=== PATIENT | male | born 1980 | race Caucasian/White ===

== ENCOUNTER 2021-03-03 13:07 | Emergency (ER) | payer OTHER ==
[~2021-03-03] VITALS: Ht 182.9 cm; Wt 95.5 kg
[2021-03-03 13:30] VITALS: BP 158/100
[2021-03-03] MEDS ORDERED: IV NORMAL SALINE 1,000ML 1,000 ML IV ONE (13:30)
[2021-03-03] MEDS ORDERED: ONDANSETRON PF 4 MG/2 ML VIAL. IVP ONE (13:30)
[2021-03-03 13:41] LABS: BASO # 0.1 x10^3/uL (0.0-0.2); BASO % 1 % (0-3); EOS # 0.1 x10^3/uL (0.0-0.7); EOS % 1 % (0-3); HEMATOCRIT 40.4 % (39.0-53.0); HEMOGLOBIN 14.1 g/dL (13.0-17.5); LYMPH # 2.1 x10^3/uL (1.0-4.8); LYMPH % 20 % (24-48); MEAN CORPUSCULAR HEMOGLOBIN 32 pg (25-35); MEAN CORPUSCULAR HGB CONC 35 g/dL (31-37); MEAN CORPUSCULAR VOLUME 90 fL (79-100); MONO # 0.7 x10^3/uL (0.0-1.1); MONO % 7 % (0-9); NEUT # 7.7 x10^3uL (1.8-7.7); NEUT % 73 % (31-73); PLATELET COUNT 275 x10^3/uL (140-400); RED BLOOD COUNT 4.48 x10^6/uL (4.30-5.70); RED CELL DISTRIBUTION WIDTH 12.9 % (11.5-14.5); WHITE BLOOD COUNT 10.6 x10^3/uL (4.0-11.0)
--- NOTE | 2021-03-03 13:47 | PHYS DOC ---
Past History Additional Past Medical Histor: BPH and chronic L hip pain from old injury Past Surgical History: Other Additional Past Surgical Histo: hip surgery L Alcohol Use: Rarely General Adult EDM: Chief Complaint: FLANK PAIN HPI: HPI: Patient is a 40-year-old male being seen in the ER today for right flank pain that started this morning. Patient describes the pain as a sharp and intermittent pain, no radiation of pain, rates pain 10 out of 10, no treatment prior to arrival, no alleviating or aggravating factors. Patient denies dysuria, frequency, urgency, hematuria, abdominal pain, nausea, vomiting, fevers, redness of breath, chest pain. Review of Systems: Review of Systems: 14 body systems of the review of systems have been reviewed. See HPI for pertinent positive and negative responses, otherwise all other systems are negative, nonpertinent or noncontributory Current Medications: Current Meds: Current Medications Medications (Trade) Dose Ordered Sig/Haley Start Time Stop Time Status Last Admin Dose Admin Fentanyl Citrate (Fentanyl 2ml Vial) 50 mcg 1X ONCE 03/03/21 13:30 03/03/21 13:38 DC 03/03/21 13:34 50 MCG Ondansetron HCl (Zofran) 4 mg 1X ONCE 03/03/21 13:30 03/03/21 13:38 DC 03/03/21 13:34 4 MG Sodium Chloride 1,000 ml @ 1,000 mls/hr 1X ONCE 03/03/21 13:30 03/03/21 14:29 03/03/21 13:34 1,000 MLS/HR Allergies: Allergies: Allergies Coded Allergies Type Severity Reaction Last Updated Verified No Known Drug Allergies 03/03/21 No Physical Exam: PE: Constitutional: Well developed, well nourished, no acute distress, non-toxic appearance. [] HENT: Normocephalic, atraumatic, bilateral external ears normal, nose normal. [] Eyes: PERRL, conjunctiva normal, no discharge. [] Neck: Normal range of motion, no stridor [] Cardiovascular:Heart rate regular rhythm, no murmur [] Lungs & Thorax: Bilateral breath sounds clear to auscultation [] Abdomen: Bowel sounds normal, soft, no tenderness, no masses, no pulsatile masses. [] Skin: Warm, dry, no erythema, no rash. [] Back: No tenderness, positive right CVA tenderness. [] Extremities: No tenderness, no cyanosis, no clubbing, ROM intact, no edema. [] Neurologic: Alert and oriented X 3, normal motor function, normal sensory function, no focal deficits noted. [] Psychologic: Affect normal, judgement normal, mood normal. [] Current Patient Data: Vital Signs: Vital Signs Date Time Temp Pulse Resp B/P (MAP) Pulse Ox O2 Delivery O2 Flow Rate FiO2 03/03/21 13:30 98.2 90 18 158/100 97 Room Air EKG: EKG: [] Radiology/Procedures: Radiology/Procedures: PROCEDURE: CT ABDOMEN PELVIS WO CONTRAST CT abdomen and pelvis without contrast: Reason for examination: Flank pain. Evaluate for stone. Helical images were obtained through the abdomen and pelvis with no intravenous or oral contrast administered. Reconstruction was performed in sagittal and coronal planes. Exposure: One or more of the following individualized dose reduction techniques were utilized for this examination: 1. Automated exposure control 2. Adjustment of the mA and/or kV according to patient size 3. Use of iterative reconstruction technique. The lung bases are clear. The heart size is normal with no pericardial effusion. The liver is enlarged at 20 cm and shows diffuse fatty infiltration but no focal lesions are seen. No abnormalities of seen at the spleen, adrenal glands, pancreas or gallbladder. The abdominal aorta and inferior vena cava show no acute abnormalities. No abnormality seen at the appendix. The colon shows a few scattered diverticuli but no evidence of diverticulitis or colitis. The small intestinal tract shows no abnormal dilatation, wall thickening or obstruction. No abnormality seen at the stomach or duodenum. In the midpole of the right kidney there does appear to be a 6 mm calculus with some focal hydronephrosis in the upper pole proximal to the calculus suggesting calyceal obstruction. There is no renal pelvic or lower pole hydronephrosis evident there is a nonobstructi ng calculus in the lower pole the right kidney. Left kidney shows nonobstructing calculi but no hydronephrosis or obstructive uropathy. No abnormality seen at the bladder, prostate gland or seminal vesicles. No free fluid is seen in the abdomen or pelvis. IMPRESSION: 6 mm calculus in the midpole of the right kidney which appears to be causing some focal hydronephrosis proximally in the upper pole of the right kidney. Additional bilateral nonobstructing calculi present. Enlarged liver with fatty infiltration. Electronically signed by: Luba Astorga MD (03/03/2021 2:20 PM) [id number] DICTATED AND SIGNED BY: LUBA ASTORGA MD DATE: 03/03/21 1405 CC: GREER OREILLY APRN; PCP,NO ~MTH0 0 Heart Score: C/O Chest Pain: No Risk Factors: Risk Factors: DM, Current or recent (<one month) smoker, HTN, HLP, family history of CAD, obesity. Risk Scores: Score 0 - 3: 2.5% MACE over next 6 weeks - Discharge Home Score 4 - 6: 20.3% MACE over next 6 weeks - Admit for Clinical Observation Score 7 - 10: 72.7% MACE over next 6 weeks - Early Invasive Strategies Course & Med Decision Making: Course & Med Decision Making Pertinent Labs and Imaging studies reviewed. (See chart for details) Patient is a 40-year-old male being seen in the ER today for right flank pain. Blood work, UA, CT scan of abdomen was performed in the ER. He was negative for any leukocytosis. His CMP showed a potassium of 3.3 and this was treated in the ER today with potassium chloride tablet. Patient CT scan of his abdomen showed a 6 mm calculus with focal hydronephrosis in the right upper pole of kidney.UA negative for a UTI. Patient was also given IV fluids, nausea medication, pain medication, Toradol, Flomax. Patient to be discharged with Flomax, nausea medication, and pain medication. I discussed with patient all findings and diagnostic testing as well as the need to follow-up with PCP for further evaluation and treatment or return to the ER if any new or worsening symptoms. Strict return precautions were also discussed at length. Patient voiced understanding and agreement with the plan. Patient is hemodynamically stable at the time of disposition. No evidence suggesting pyelonephritis or urinary tract infection, no acute kidney injury present with significant hydronephrosis. Pain is controlled at this time. Stone was 6 mm in the past spontaneously, this was discussed with patient and there agreeable to trial of stone passage at home. Will give pain control and tamsulosin prescriptions. Patient is hemodynamically stable and afebrile currently. Plan to discharge from the emergency department. Advised to take medications as instructed and drink plenty of fluids. Return precautions discussed with the patient who understands all instructions and is comfortable with the plan of care. Jose F Disclaimer: Dragon Disclaimer: This electronic medical record was generated, in whole or in part, using a voice recognition dictation system. Departure Departure: Impression: Primary Impression: Kidney stone Disposition: HOME / SELF CARE / HOMELESS Condition: GOOD Referrals: PCP,NO (PCP) Patient Instructions: Kidney Stones Additional Instructions: You were seen in the ER today for flank pain. You have a kidney stone that will hopefully pass. We are writing a prescription for pain medication and a medication to help dilate the ureter so that you can pass the stone more easily. He should strain your urine and look for the stone. You will need to follow- up with urologist as soon as possible. You should return to the ER if you have worsening pain, fever, continued bloody urine, lightheadedness, shortness of breath, chest pain or any new or concerning symptoms. You are being sent home with medication called Flomax which should help the stone pass through so that you can pick it out. You were also given a prescription for Zofran for nausea. For mild pain take 600 mg of ibuprofen every 6 hours. For severe pain you can take a ago prescribed. This medication contains codeine which may cause drowsiness. Do not take you need to be alert and do not take it with any other medications or alcohol and that may also cause drowsiness. EMERGENCY DEPARTMENT GENERAL DISCHARGE INSTRUCTIONS Thank you for coming to [facility] (ED) today and trusting us with you care. We trust that you had a positivie experience in our Emergency Department. If you wish to speak to the department management, you may call the director at [phone]. YOUR FOLLOW UP INSTRUCTIONS ARE FOLLOWS: 1. Do you have a private Doctor? If you do not have a private doctor, please ask for a resource list of physicians or clinics that may be able to assist you with follow up care. 2. The Emergency Physician has interpreted your x-rays. The X-Ray specialist will also review them. If there is a change in the findings, you will be notified in 48 hours when at all possible. 3. A lab test or culture has been done, your results will be reviewed and you will be notified if you need a change in treatment. ADDITIONAL INSTRUCTIONS AND INFORMATION: 1. Your care today has been supervised by a physician who is specially trained in emergency care. Many problems require more than one evaluation for a complete diagnosis and treatment. We recommend that you schedule your follow up appointment as recommended to ensure complete treatment of you illness or injury. If you are unable to obtain follow up care and continue to have a problem, or if your condition worsens, we recommend that you return to the ED. 2. We are not able to safely determine your condition over the phone nor are we able to give sound medical advice over the phone. For these safety reasons, if you call for medical advice we will ask you to come to the ED for further evaluation. 3. If you have any questions regarding these discharge instructions please call the ED at [phone]. SAFETY INFORMATION: In the interest of safety, wellness, and injury prevention; we encourage you to wear your sealbelt, if you smoke; quite smoking, and we encourage family to use a protective helmet for bicycling and other sporting events that present an increased risk for head injury. IF YOUR SYMPTOMS WORSEN OR NEW SYMPTOMS DEVELOP, OR YOU HAVE CONCERNS ABOUT YOUR CONDITION; OR IF YOUR CONDITION WORSENS WHILE YOU ARE WAITING FOR YOUR FOLLOW UP APPOINTMENT; EITHER CONTACT YOUR PRIMARY CARE DOCTOR, THE PHYSICIAN WHOSE NAME AND NUMBER YOU WERE GIVEN, OR RETURN TO THE ED IMMEDIATELY. Scripts Hydrocodone/Acetaminophen (Hydrocodone-Acetamin 5-325 mg) 1 Each Tablet 1 EACH PO Q6-8HRS PRN for ABDOMINAL CRAMPS for 2 Days, #8 TAB 0 Refills Prov: GREER OREILLY APRN 03/03/21 Ondansetron (ONDANSETRON ODT) 4 Mg Tab.rapdis 1 TAB PO PRN Q6-8HRS for nausea, #16 TAB 0 Refills Prov: GREER OREILLY APRN 03/03/21 Tamsulosin Hcl (FLOMAX) 0.4 Mg Cap.er.24h 1 CAP PO HS for kidney stone for 10 Days, #10 CAP 0 Refills Prov: GREER OREILLY APRN 03/03/21 GREER OREILLY APRN Mar 03, 2021 13:47
[2021-03-03 13:49] LABS: ALBUMIN 4.1 g/dL (3.4-5.0); ALBUMIN/GLOBULIN RATIO 1.2 (1.0-1.7); ALK PHOS 53 U/L (46-116); ALT (SGPT) 68 U/L (16-63); AST (SGOT) 29 U/L (15-37); BLOOD UREA NITROGEN 15 mg/dL (8-26); BUN/CREATININE RATIO 13 (6-20); CALCIUM 8.7 mg/dL (8.5-10.1); CARBON DIOXIDE 23 mmol/L (21-32); CREATININE 1.2 mg/dL (0.7-1.3); GFR 66.4; GLUCOSE 128 mg/dL (70-99); TOTAL PROTEIN 7.5 g/dL (6.4-8.2)
[2021-03-03] MEDS ORDERED: KETOROLAC 30 MG/ML VIAL. IVP ONE (14:15)
--- NOTE | 2021-03-03 14:22 | RAD ---
CT abdomen and pelvis without contrast: Reason for examination: Flank pain. Evaluate for stone. Helical images were obtained through the abdomen and pelvis with no intravenous or oral contrast admi nistered. Reconstruction was performed in sagittal and coronal planes. Exposure: One or more of the following individualized dose reduction techniques were utilized for thi s examination: 1. Automated exposure control 2. Adjustment of the mA and/or kV according to patient size 3. Use of iterative reconstruction technique. The lung bases are clear. The heart size is normal with no pericardial effusion. The liver is enlarged at 20 cm and shows diffuse fatty infiltration but no focal lesions are seen. No abnormalities of seen at the spleen, adrenal glands, pancreas or gallbladder. The abdominal aorta an d inferior vena cava show no acute abnormalities. No abnormality seen at the appendix. The colon show s a few scattered diverticuli but no evidence of diverticulitis or colitis. The small intestinal trac t shows no abnormal dilatation, wall thickening or obstruction. No abnormality seen at the stomach or duodenum. In the midpole of the right kidney there does appear to be a 6 mm calculus with some focal hydronephrosis in the upper pole proximal to the calculus suggesting calyceal obstruction. There is no renal pelvic or lower pole hydronephrosis evident there is a nonobstructing calculus in the lower pole the right kidney. Left kidney shows nonobstructing calculi but no hydronephrosis or obstructive uropathy. No abnormality seen at the bladder, prostate gland or seminal vesicles. No free fluid is seen in the abdomen or pelvis. IMPRESSION: 6 mm calculus in the midpole of the right kidney which appears to be causing some focal hydronephrosi s proximally in the upper pole of the right kidney. Additional bilateral nonobstructing calculi present. Enlarged liver with fatty infiltration. Electronically signed by: Luba Ashby MD (03/03/2021 2:20 PM) [id number]
[2021-03-03] MEDS ORDERED: TAMSULOSIN 0.4 MG CAP.ER.24H. PO ONE (14:30)
[2021-03-03 14:32] LABS: POTASSIUM ISTAT 3.3 mmol/L (3.5-5.0); SODIUM ISTAT 140 mmol/L (135-145)
[2021-03-03] MEDS ORDERED: POTASSIUM CHLORIDE 20 MEQ TABLET.ER. PO ONE (14:45)
[2021-03-03 15:54] LABS: BILIRUBIN,URINE NEG (NEG); CLARITY,URINE HAZY; COLOR,URINE YELLOW; GLUCOSE,URINE NEG (NEG); NITRITE,URINE NEG (NEG); UROBILINOGEN,URINE 0.2 mg/dL (0.2 mg/dL)
[2021-03-03 16:03] LABS: RBC,URINE >40 /HPF (0-2)
[2021-03-03 16:04] LABS: BACTERIA,URINE FEW /HPF (0-FEW); SQUAMOUS EPITHELIAL CELL,UR OCC /LPF
[2021-03-03] MEDS ORDERED: ONDA4TAB12 PO (16:18)
[2021-03-03] MEDS ORDERED: HYDR-2759 PO (16:18)
[2021-03-03] MEDS ORDERED: TAMS0.4C97 PO (16:18)
== END 2021-03-03 16:24 | disposition home or self-care (01) ==
LOC: ER 13:07
DX: N20.0 Calculus of kidney (principal)
CPT/HCPCS: 36415; 74176; 80047; 80053; 81001; 85025; 96361; 96374; 96375; 99284; J1885; J2405; J3010; J7030

== ENCOUNTER 2021-04-08 | Emergency (ER) | payer OTHER ==
[~2021-04-08] VITALS: Ht 172.7 cm; Wt 89.2 kg
[~2021-04-08] MED LIST: HYDR-2759 PO; ONDA4TAB12 PO; TAMS0.4C97 PO
--- NOTE | 2021-04-08 02:41 | PHYS DOC ---
Past History Past Medical History: Kidney Infection, Kidney Stones Additional Past Medical Histor: BPH and chronic L hip pain from old injury Past Surgical History: Other Additional Past Surgical Histo: hip surgery L Alcohol Use: Rarely General Adult EDM: Chief Complaint: FLANK PAIN HPI: HPI: "..I may be having another kidney stone.." " I am hurting really bad on the Rt..." Patient is a 41 year old male [employer] employee who presents with above hx and complaints of right flank pain. Pain is similar to prior episodes with kidney stones. Pain started earlier yesterday but persisted today causing intermittent sharp stabbing pains. There is there is radiation to right groin. Pain currently rated 10 out of 10. No history of trauma. No history of travel. No relieving or aggravating factors. Patient does have associated nausea with the severe pain. Patient denies any history of dysuria, frequency, urgency or discharge. Has extreme nausea and almost vomiting with acute bouts of pain. Patient denies any fever or chills. Patient denies any history immunosuppression. No recent travel outside the [place] area. Patient has had prior episodes of kidney stones. Patient normally follows at [place]. Patient does have a urologist. Review of Systems: Review of Systems: Constitutional: Denies fever or chills Eyes: Denies change in visual acuity HENT: Denies nasal congestion or sore throat Respiratory: Denies cough or shortness of breath Cardiovascular: Denies chest pain or edema GI: Complains of severe right flank abdominal pain, nausea,. Vomiting, bloody stools or diarrhea : Denies dysuria Musculoskeletal: Complains of severe right flank back pain . Integument: Denies rash Neurologic: Denies headache, focal weakness or sensory changes Endocrine: Denies polyuria or polydipsia Lymphatic: Denies swollen glands Psychiatric: Denies depression or anxiety Family History: Family History: Noncontributory to presentation Current Medications: Current Meds: See nursing for home meds Allergies: Allergies: Allergies Coded Allergies Type Severity Reaction Last Updated Verified No Known Drug Allergies 03/03/21 No Physical Exam: PE: Constitutional: Well developed, well nourished, in acute distress, non-toxic appearance. [] HENT: Normocephalic, atraumatic, bilateral external ears normal, oropharynx moist, no oral exudates, nose normal. [] Eyes: PERRLA, EOMI, conjunctiva normal, no discharge. [] Neck: Normal range of motion, no tenderness, supple, no stridor. [] Cardiovascular: Tachycardia heart rate regular rhythm, no murmur [] Lungs & Thorax: Bilateral breath sounds equal apex on auscultation [] Abdomen: Bowel sounds decreased , soft, no tenderness, no masses, no pulsatile masses. Right flank pain. Rebound right flank Skin: Warm, dry, no erythema, no rash. [] Back: No tenderness, right CVA tenderness. [] Extremities: No tenderness, no cyanosis, no clubbing, ROM intact, no edema. No cording. No psoas sign. Left hip scar. Neurologic: Alert and oriented X 3, normal motor function, normal sensory function, no focal deficits noted. [] Psychologic: Affect anxious, judgement normal, mood normal. [] EKG: EKG: [] Radiology/Procedures: Radiology/Procedures: [][place] [address] IMAGING REPORT Signed PATIENT: FENG HERNÁNDEZ BACCOUNT: [id number] : 1980 LOCATION: ER AGE: 41 SEX: M EXAM STATUS: REG ER ORD. PHYSICIAN: CLARENCE STEWART MD REASON: pain, RIGHT FLANK PAIN, H/O STONES PROCEDURE: CT ABDOMEN PELVIS WO CONTRAST CT abdomen and pelvis without contrast PQRS statement: CT scans at this facility use dose reduction including either automated exposure control, iterative reconstructions, and /or weight based radiation dosing via mA and kV modification when appropriate to reduce radiation dose to as low as reasonably achievable. HISTORY: Right flank pain. History kidney stones. COMPARISON: CT abdomen and pelvis March 03, 2021 Abdomen findings: Hypodense liver likely fatty with focal sparing at the gallbladder fossa. Gallbladder, spleen, adrenals, pancreas unremarkable. Bila teral nephrolithiasis. Bilateral perinephric edema. There is a distal left ureteral 3 mm calculus image 131 no significant left renal hydronephrosis. There is mild right renal hydronephrosis with renal pelvis diameter of 1.5 cm associated with a obstructing ureteropelvic junction 7 mm calculus and asymmetric right perinephric edema. Scattered mild colonic diverticulosis. Appendix is negative. No obstruction or inflammatory changes in GI tract. No abdominal free fluid. Pelvis findings: No bladder calculi. Prostate, rectum and bones are unremarkable. IMPRESSION: 1. Mild right renal hydronephrosis and asymmetric perinephric edema associated with a 7 mm obstructing ureteropelvic junction calculus. 2. 3 mm distal left ureteral calculus without significant left renal hydronephrosis. 3. Bilateral nephrolithiasis. 4. Hypodensity of the liver likely fatty. 5. The appendix is negative. Electronically signed by: Domenic Mata MD (04/08/2021 4:18 AM) [facility] DICTATED AND SIGNED BY: DOMENIC MATA MD DATE: 04/08/21411 CC: CLARENCE STEWART MD; PCP,NO ~MTH0 0 [place] [address] IMAGING REPORT Signed PATIENT: FENG HERNÁNDEZ BACCOUNT: [id number] : 1980 LOCATION: ER AGE: 41 SEX: M EXAM STATUS: REG ER ORD. PHYSICIAN: CLARENCE STEWART MD REASON: renal colic PROCEDURE: ACUTE ABDOMEN SERIES PA chest and AP upright supine abdomen x-rays HISTORY: Renal colic. FINDINGS: Heart size normal. Mediastinal silhouette is normal. No pulmonary opacities or pleural effusions. No pneumoperitoneum. No dilated bowel loops or abnormal air-fluid levels. There is right nephrolithiasis with an indistinct density near the region of the right hilum measuring approximately 5 mm. Bones are unremarkable. IMPRESSION: Right nephrolithiasis as described above. Electronically signed by: Domenic Mata MD (04/08/2021 4:24 AM) [facility] DICTATED AND SIGNED BY: DOMENIC MATA MD DATE: 04/08/21420 CC: CLARENCE STEWART MD; PCP,NO ~MTH0 0 Heart Score: C/O Chest Pain: N/A Risk Factors: Risk Factors: DM, Current or recent (<one month) smoker, HTN, HLP, family history of CAD, obesity. Risk Scores: Score 0 - 3: 2.5% MACE over next 6 weeks - Discharge Home Score 4 - 6: 20.3% MACE over next 6 weeks - Admit for Clinical Observation Score 7 - 10: 72.7% MACE over next 6 weeks - Early Invasive Strategies Course & Med Decision Making: Course & Med Decision Making Pertinent Labs and Imaging studies reviewed. (See chart for details) Patient with fluids. Take Cipro 500 mg twice a day. Take Flomax daily. Tylenol and ibuprofen for pain. For marked pain may take Vicoprofen up to 4 ti mes a day. Follow-up with urology. Take copy of CT with you on follow-up. Return if any concerns. Follow-up primary care. Impression: 1. Renal colic-7 mm obstructing ureteropelvic junction kidney stone 2. 3 mm distal left uretera stone without hydronephrosis 3. Mild leukocytosis 14.6 4. Elevated glucose 152 5. Elevated creatinine 1.4 6. CK elevated 376 7. COVID vaccination x 2 in July-/ Aug. Moderna [] Jose F Disclaimer: Jose F Disclaimer: This electronic medical record was generated, in whole or in part, using a voice recognition dictation system. Departure Departure: Referrals: PCP,NO (PCP) Scripts Ciprofloxacin (CIPRO) 500 Mg/5 Ml Shyla.mc.rec 500 MG PO BID for kidney stone for 7 Days, MISC Prov: CLARENCE STEWART MD 04/08/21 Tamsulosin Hcl (FLOMAX) 0.4 Mg Cap.er.24h 0.4 MG PO DAILY for kidney stone, #30 CAP.SR Prov: CLARENCE STEWART MD 04/08/21 Ondansetron Hcl (ZOFRAN) 4 Mg Tablet 8 MG PO QIDPRN PRN for nv, #30 TAB Prov: CLARENCE STEWART MD 04/08/21 Hydrocodone/Ibuprofen (HYDROCODONE-IBUPROFEN 7.5-200 ) 1 Each Tablet 1 TAB PO PRN Q6HRS PRN for PAIN, #30 TAB 0 Refills Prov: CLARENCE STEWART MD 04/08/21 Jose F Disclaimer This chart was dictated in whole or in part using Voice Recognition software in a busy, high-work load, and often noisy Emergency Department environment. It may contain unintended and wholly unrecognized errors or omissions. Dragon Disclaimer This chart was dictated in whole or in part using Voice Recognition software in a busy, high-work load, and often noisy Emergency Department environment. It may contain unintended and wholly unrecognized errors or omissions. Dragon Disclaimer This chart was dictated in whole or in part using Voice Recognition software in a busy, high-work load, and often noisy Emergency Department environment. It may contain unintended and wholly unrecognized errors or omissions. CLARENCE STEWART MD Apr 08, 2021 02:41
[2021-04-08] MEDS ORDERED: FAMOTIDINE 20 MG/2 ML VIAL IVP ONE (03:30)
[2021-04-08] MEDS ORDERED: TAMSULOSIN 0.4 MG CAP.ER.24H. PO ONE (03:30)
[2021-04-08] MEDS ORDERED: ONDANSETRON PF 4 MG/2 ML VIAL. IVP ONE (03:30)
[2021-04-08] MEDS ORDERED: CIPROFLOXACIN HCL 500 MG TABLET PO ONE (03:30)
[2021-04-08] MEDS ORDERED: IV RINGERS SOLUTION,LACTATED 1,000 ML IV SCH (03:30)
[2021-04-08] MEDS ORDERED: KETOROLAC 30 MG/ML VIAL. IVP ONE (03:30)
[2021-04-08 03:37] LABS: BASO % 0 % (0-3); EOS % 0 % (0-3); HEMATOCRIT 39.3 % (39.0-53.0); HEMOGLOBIN 13.7 g/dL (13.0-17.5); LYMPH # 0.8 x10^3/uL (1.0-4.8); LYMPH % 5 % (24-48); MEAN CORPUSCULAR HEMOGLOBIN 32 pg (25-35); MEAN CORPUSCULAR HGB CONC 35 g/dL (31-37); MEAN CORPUSCULAR VOLUME 90 fL (79-100); MONO # 0.5 x10^3/uL (0.0-1.1); MONO % 4 % (0-9); NEUT # 13.2 x10^3uL (1.8-7.7); NEUT % 91 % (31-73); PLATELET COUNT 282 x10^3/uL (140-400); RED BLOOD COUNT 4.36 x10^6/uL (4.30-5.70); RED CELL DISTRIBUTION WIDTH 12.4 % (11.5-14.5); WHITE BLOOD COUNT 14.6 x10^3/uL (4.0-11.0)
[2021-04-08 03:46] LABS: BILIRUBIN,URINE NEG (NEG); CLARITY,URINE CLEAR; COLOR,URINE YELLOW; GLUCOSE,URINE NEG (NEG); NITRITE,URINE NEG (NEG); UROBILINOGEN,URINE 0.2 mg/dL (0.2 mg/dL)
[2021-04-08 03:47] LABS: CALCIUM 8.8 mg/dL (8.5-10.1); CREATININE 1.4 mg/dL (0.7-1.3); GFR 55.3; POTASSIUM 4.3 mmol/L (3.5-5.1)
[2021-04-08 03:47] LABS: BACTERIA,URINE 0 /HPF (0-FEW); BARBITURATES NEG (NEG); BENZODIAZEPINES NEG (NEG); CANNABINOIDS NEG (NEG); COCAINE NEG (NEG); METHADONE NEG (NEG); OPIATES POS (NEG); PHENCYCLIDINE NEG (NEG); SQUAMOUS EPITHELIAL CELL,UR OCC /LPF; WBC,URINE OCC /HPF (0-4)
[2021-04-08 03:49] LABS: AMPHETAMINE/METHAMPHETAMINE NEG (NEG)
[2021-04-08 04:00] LABS: ALBUMIN 4.2 g/dL (3.4-5.0); DIRECT BILIRUBIN 0.2 mg/dL (0.0-0.2); TOTAL BILIRUBIN 0.8 mg/dL (0.2-1.0); TOTAL PROTEIN 7.5 g/dL (6.4-8.2)
--- NOTE | 2021-04-08 04:21 | RAD ---
CT abdomen and pelvis without contrast PQRS statement: CT scans at this facility use dose reduction including either automated exposure cont rol, iterative reconstructions, and /or weight based radiation dosing via mA and kV modification when appropriate to reduce radiation dose to as low as reasonably achievable. HISTORY: Right flank pain. History kidney stones. COMPARISON: CT abdomen and pelvis March 03, 2021 Abdomen findings: Hypodense liver likely fatty with focal sparing at the gallbladder fossa. Gallbladd er, spleen, adrenals, pancreas unremarkable. Bilateral nephrolithiasis. Bilateral perinephric edema. There is a distal left ureteral 3 mm calculus image 131 no significant left renal hydronephrosis. The re is mild right renal hydronephrosis with renal pelvis diameter of 1.5 cm associated with a obstruct ing ureteropelvic junction 7 mm calculus and asymmetric right perinephric edema. Scattered mild colon ic diverticulosis. Appendix is negative. No obstruction or inflammatory changes in GI tract. No abdom inal free fluid. Pelvis findings: No bladder calculi. Prostate, rectum and bones are unremarkable. IMPRESSION: 1. Mild right renal hydronephrosis and asymmetric perinephric edema associated with a 7 mm obstructin g ureteropelvic junction calculus. 2. 3 mm distal left ureteral calculus without significant left renal hydronephrosis. 3. Bilateral nephrolithiasis. 4. Hypodensity of the liver likely fatty. 5. The appendix is negative. Electronically signed by: Esvin Mata MD (04/08/2021 4:18 AM) [facility]
--- NOTE | 2021-04-08 04:26 | RAD ---
PA chest and AP upright supine abdomen x-rays HISTORY: Renal colic. FINDINGS: Heart size normal. Mediastinal silhouette is normal. No pulmonary opacities or pleural effu sions. No pneumoperitoneum. No dilated bowel loops or abnormal air-fluid levels. There is right nephr olithiasis with an indistinct density near the region of the right hilum measuring approximately 5 mm . Bones are unremarkable. IMPRESSION: Right nephrolithiasis as described above. Electronically signed by: Esvin Mata MD (04/08/2021 4:24 AM) [facility]
[2021-04-08] MEDS ORDERED: HYDR-1179 PO (05:37)
[2021-04-08] MEDS ORDERED: CIPR500S2 PO (05:44)
[2021-04-08] MEDS ORDERED: TAMS0.4C97 PO (05:44)
[2021-04-08] MEDS ORDERED: ONDA4TAB7 PO (05:44)
[2021-04-08 05:45] VITALS: BP 140/76
== END 2021-04-08 05:56 | disposition home or self-care (01) ==
LOC: ER
DX: N13.2 Hydronephrosis with renal and ureteral calculous obstruction (principal); D72.829 Elevated white blood cell count, unspecified; R73.9 Hyperglycemia, unspecified; R79.89 Other specified abnormal findings of blood chemistry; Z87.442 Personal history of urinary calculi
CPT/HCPCS: 36415; 74022; 74176; 80048; 80076; 80307; 81001; 82150; 82550; 83690; 84484; 85025; 96361; 96374; 96375; 99285; J1885; J2405; J3490; J7120

== ENCOUNTER 2021-04-11 17:41 | Emergency (ER) | payer OTHER ==
[~2021-04-11] VITALS: Ht 172.7 cm; Wt 87.4 kg
[~2021-04-11 17:41] MED LIST changes: +CIPR500S2 PO; +HYDR-1179 PO; +ONDA4TAB7 PO
--- NOTE | 2021-04-11 18:10 | PHYS DOC ---
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 Patient was seen in this ER on Friday and diagnosed with a kidney stone. He was discharged home with pain medication and antibiotic. It appears that patient had a 7 mm stone in the right UVJ and a 3 mm in the left distal ureter. Patient was also noted to have mild leukocytosis of 14.6 WBC and a creatinine of 1.4. Patient rates his pain 10 out of 10. He reports that it radiates into his right lower quadrant. Reports he is taking his Flomax but is not straining his urine but does not believe that he is passed the stone. Patient denies dysuria, hematuria, urinary frequency/urgency, nausea, vomiting, fevers. (GREER OREILLY APRN) Review of Systems: Review of Systems: 14 body systems of the review of systems have been reviewed. See HPI for pertinent positive and negative responses, otherwise all other systems are negative, nonpertinent or noncontributory (GREER OREILLY APRN) Allergies: Allergies: Allergies Coded Allergies Type Severity Reaction Last Updated Verified No Known Drug Allergies 03/03/21 No (GREER OREILLY APRN) Physical Exam: PE: Constitutional: Well developed, well nourished, no acute distress, non-toxic appearance. [] HENT: Normocephalic, atraumatic Eyes: PERRL, EOMI, conjunctiva normal, no discharge. [] Neck: Normal range of motion, no tenderness, supple, no stridor. [] Cardiovascular:Heart rate regular rhythm, no murmur [] Lungs & Thorax: Bilateral breath sounds clear to auscultation [] Abdomen: Bowel sounds normal, soft, right lower quadrant tenderness with palpation, no masses, no pulsatile masses. [] Skin: Warm, dry, no erythema, no rash. [] Back: No tenderness, right CVA tenderness. [] Extremities: No tenderness, no cyanosis, no clubbing, ROM intact, no edema. [] Neurologic: Alert and oriented X 3, normal motor function, normal sensory function, no focal deficits noted. [] Psychologic: Affect normal, judgement normal, mood normal. [] (GREER OREILLY APRN) Current Patient Data: Labs: Laboratory Tests Test 04/11/21 18:34 White Blood Count 13.3 x10^3/uL Red Blood Count 4.44 x10^6/uL Hemoglobin 13.9 g/dL Hematocrit 40.6 % Mean Corpuscular Volume 92 fL Mean Corpuscular Hemoglobin 31 pg Mean Corpuscular Hemoglobin Concent 34 g/dL Red Cell Distribution Width 12.5 % Platelet Count 274 x10^3/uL Neutrophils (%) (Auto) 79 % Lymphocytes (%) (Auto) 13 % Monocytes (%) (Auto) 8 % Eosinophils (%) (Auto) 1 % Basophils (%) (Auto) 0 % Neutrophils # (Auto) 10.4 x10^3uL Lymphocytes # (Auto) 1.7 x10^3/uL Monocytes # (Auto) 1.0 x10^3/uL Eosinophils # (Auto) 0.1 x10^3/uL Basophils # (Auto) 0.1 x10^3/uL Urine Collection Type Unknown Urine Color Yellow Urine Clarity Clear Urine pH 6.5 Urine Specific [place] 1.010 Urine Protein Neg Urine Glucose (UA) Neg mg/dL Urine Ketones (Stick) 40 mg/dL Urine Blood Trace Urine Nitrite Neg Urine Bilirubin Neg Urine Urobilinogen Dipstick 0.2 mg/dL Urine Leukocyte Esterase Neg Urine RBC 0 /HPF Urine WBC 0 /HPF Urine Bacteria 0 /HPF Sodium Level 137 mmol/L Potassium Level 3.8 mmol/L Chloride Level 99 mmol/L Carbon Dioxide Level 27 mmol/L Anion Gap 11 Blood Urea Nitrogen 15 mg/dL Creatinine 1.8 mg/dL Estimated GFR (Cockcroft-Gault) 41.4 BUN/Creatinine Ratio 8 Glucose Level 101 mg/dL Calcium Level 8.6 mg/dL Total Bilirubin 1.4 mg/dL Aspartate Amino Transf (AST/SGOT) 27 U/L Alanine Aminotransferase (ALT/SGPT) 46 U/L Alkaline Phosphatase 69 U/L Total Protein 7.7 g/dL Albumin 3.9 g/dL Albumin/Globulin Ratio 1.0 Current Medications Medications (Trade) Dose Ordered Sig/Haley Route PRN Reason Start Time Stop Time Status Last Admin Dose Admin Sodium Chloride 1,000 ml @ 1,000 mls/hr 1X ONCE IV 04/11/21 18:15 04/11/21 19:14 DC 04/11/21 18:41 Ondansetron HCl (Zofran) 4 mg 1X ONCE IVP 04/11/21 18:15 04/11/21 18:16 DC 04/11/21 18:33 Fentanyl Citrate (Fentanyl 2ml Vial) 50 mcg 1X ONCE IVP 04/11/21 18:15 04/11/21 18:16 DC 04/11/21 18:34 Metoclopramide HCl (Reglan Vial) 10 mg 1X ONCE IVP 04/11/21 19:30 04/11/21 19:36 DC 04/11/21 19:35 Ketorolac Tromethamine (Toradol 15mg Vial) 10 mg 1X ONCE IVP 04/11/21 19:30 04/11/21 19:36 DC 04/11/21 19:36 (GREER OREILLY APRN) EKG: EKG: [] (GREER OREILLY APRN) Radiology/Procedures: Radiology/Procedures: [] (GREER OREILLY APRN) Heart Score: C/O Chest Pain: No Risk Factors: Risk Factors: DM, Current or recent (<one month) smoker, HTN, HLP, family history of CAD, obesity. Risk Scores: Score 0 - 3: 2.5% MACE over next 6 weeks - Discharge Home Score 4 - 6: 20.3% MACE over next 6 weeks - Admit for Clinical Observation Score 7 - 10: 72.7% MACE over next 6 weeks - Early Invasive Strategies (GREER OREILLY APRN) Course & Med Decision Making: Course & Med Decision Making Pertinent Labs and Imaging studies reviewed. (See chart for details) [] Patient is a 41-year-old male being seen in the ER for right flank pain. Patient was diagnosed with kidney stones. Patient has some in nature stone in the right H&P millimeter in the left distal ureter. Work-up in the ER consisted of blood work, UA. Patient was treated with fluids, nausea medication, and pain medication. Urinalysis was negative for infection. Patient's leukocytosis has improved with last ER visit. Patient's creatinine has a mild increase from 1.4 on April 08-1.8 today. Patient's vital signs are stable and he is afebrile. Patient to be discharged home with pain medication and he is advised to follow-up with urology tomorrow. I discussed with patient all findings and diagnostic testing as well as the need to follow-up with PCP for further evalua tion and treatment or return to the ER if any new or worsening symptoms. Strict return precautions were also discussed at length. Patient voiced understanding and agreement with the plan. Patient is hemodynamically stable at the time of disposition. (GREER OREILLY APRN) Dragon Disclaimer: Dragon Disclaimer: This electronic medical record was generated, in whole or in part, using a voice recognition dictation system. (GREER OREILLY APRN) Departure Departure: Impression: Primary Impression: Kidney stone Additional Impression: Renal insufficiency Disposition: HOME / SELF CARE / HOMELESS Condition: GOOD Referrals: NARENDRA MURRAY (PCP) Patient Instructions: Kidney Stones Additional Instructions: You were seen in the ER today for right flank pain. Your lab work was consistent with findings from your previous ER visit. You were treated with fluids, nausea medication, and pain medication in the ER. For mild pain you can take Ibuprofen. You are being discharged home with a prescription for pain medication. This medication is called Percocet. This medication contains oxycodone and Tylenol combination tablet. Please not take any additional Tylenol with this medication. This medication may cause sedation so do not take when you need to be alert and do not take with alcohol. You need to follow-up with a urologist tomorrow. If you return to this ER, we can provide you with pain control. Although, this facility does not have a urology group so make sure that you are calling a facility with urology coverage if your symptoms worsen. If you develop worsening of your pain, intractable nausea/vomiting, fevers refractory to treatment, chest pain, shortness of breath, hematuria please return for pain control or go to an ER with urology coverage. EMERGENCY DEPARTMENT GENERAL DISCHARGE INSTRUCTIONS Thank you for coming to [facility] (ED) today and trusting us with you care. We trust that you had a positivie experience in our Emergency Department. If you wish to speak to the department management, you may call the director at [phone]. YOUR FOLLOW UP INSTRUCTIONS ARE FOLLOWS: 1. Do you have a private Doctor? If you do not have a private doctor, please ask for a resource list of physicians or clinics that may be able to assist you with follow up care. 2. The Emergency Physician has interpreted your x-rays. The X-Ray specialist will also review them. If there is a change in the findings, you will be notified in 48 hours when at all possible. 3. A lab test or culture has been done, your results will be reviewed and you will be notified if you need a change in treatment. ADDITIONAL INSTRUCTIONS AND INFORMATION: 1. Your care today has been supervised by a physician who is specially trained in emergency care. Many problems require more than one evaluation for a complete diagnosis and treatment. We recommend that you schedule your follow up appointment as recommended to ensure complete treatment of you illness or injury. If you are unable to obtain follow up care and continue to have a problem, or if your condition worsens, we recommend that you return to the ED. 2. We are not able to safely determine your condition over the phone nor are we able to give sound medical advice over the phone. For these safety reasons, if you call for medical advice we will ask you to come to the ED for further evaluation. 3. If you have any questions regarding these discharge instructions please call the ED at [phone]. SAFETY INFORMATION: In the interest of safety, wellness, and injury prevention; we encourage you to wear your sealbelt, if you smoke; quite smoking, and we encourage family to use a protective helmet for bicycling and other sporting events that present an increased risk for head injury. IF YOUR SYMPTOMS WORSEN OR NEW SYMPTOMS DEVELOP, OR YOU HAVE CONCERNS ABOUT YOUR CONDITION; OR IF YOUR CONDITION WORSENS WHILE YOU ARE WAITING FOR YOUR FOLLOW UP APPOINTMENT; EITHER CONTACT YOUR PRIMARY CARE DOCTOR, THE PHYSICIAN WHOSE NAME AND NUMBER YOU WERE GIVEN, OR RETURN TO THE ED IMMEDIATELY. Scripts Oxycodone Hcl/Acetaminophen (PERCOCET 5-325 MG TABLET ) 1 Each Tablet 1 TAB PO Q6HRS PRN for PAIN for 2 Days, #8 TAB 0 Refills Prov: GREER OREILLY MULTI OPERATION MACHINE OPERATOR 04/11/21 Attending Signature Attending Signature I have reviewed the PA/SOFTWARE SECURITY ARCHITECT's note and plan of care. I was available for consultation as needed during the patient's visit in the emergency department. I agree with the clinical impression, plan, and disposition. (HUGO KESSLER DO) GREER OREILLY APRN Apr 11, 2021 18:10 HUGO KESSLER DO Apr 11, 2021 21:02
[2021-04-11] MEDS ORDERED: ONDANSETRON PF 4 MG/2 ML VIAL. IVP ONE (18:15)
[2021-04-11] MEDS ORDERED: IV NORMAL SALINE 1,000ML 1,000 ML IV ONE (18:15)
[2021-04-11 19:01] LABS: BASO # 0.1 x10^3/uL (0.0-0.2); BASO % 0 % (0-3); EOS # 0.1 x10^3/uL (0.0-0.7); EOS % 1 % (0-3); HEMATOCRIT 40.6 % (39.0-53.0); HEMOGLOBIN 13.9 g/dL (13.0-17.5); LYMPH # 1.7 x10^3/uL (1.0-4.8); LYMPH % 13 % (24-48); MEAN CORPUSCULAR HEMOGLOBIN 31 pg (25-35); MEAN CORPUSCULAR HGB CONC 34 g/dL (31-37); MEAN CORPUSCULAR VOLUME 92 fL (79-100); MONO % 8 % (0-9); NEUT # 10.4 x10^3uL (1.8-7.7); NEUT % 79 % (31-73); PLATELET COUNT 274 x10^3/uL (140-400); RED BLOOD COUNT 4.44 x10^6/uL (4.30-5.70); RED CELL DISTRIBUTION WIDTH 12.5 % (11.5-14.5); WHITE BLOOD COUNT 13.3 x10^3/uL (4.0-11.0)
[2021-04-11 19:17] LABS: CALCIUM 8.6 mg/dL (8.5-10.1); CREATININE 1.8 mg/dL (0.7-1.3); GFR 41.4; POTASSIUM 3.8 mmol/L (3.5-5.1)
[2021-04-11 19:23] LABS: BILIRUBIN,URINE NEG (NEG); CLARITY,URINE CLEAR; COLOR,URINE YELLOW; GLUCOSE,URINE NEG (NEG)
[2021-04-11 19:24] LABS: BACTERIA,URINE 0 /HPF (0-FEW); NITRITE,URINE NEG (NEG); RBC,URINE 0 /HPF (0-2); UROBILINOGEN,URINE 0.2 mg/dL (0.2 mg/dL); WBC,URINE 0 /HPF (0-4)
[2021-04-11] MEDS ORDERED: METOCLOPRAMIDE HCL 10 MG/2 ML VIAL. IVP ONE (19:30)
[2021-04-11] MEDS ORDERED: KETOROLAC 15 MG/ML VIAL. IVP ONE (19:30)
[2021-04-11 19:33] LABS: ALBUMIN 3.9 g/dL (3.4-5.0); TOTAL BILIRUBIN 1.4 mg/dL (0.2-1.0); TOTAL PROTEIN 7.7 g/dL (6.4-8.2)
[2021-04-11] MEDS ORDERED: OXYC1TAB15 PO (19:58)
[2021-04-11 20:00] VITALS: BP 154/90
== END 2021-04-11 20:05 | disposition home or self-care (01) ==
LOC: ER 17:41
DX: N20.0 Calculus of kidney (principal); N28.9 Disorder of kidney and ureter, unspecified
CPT/HCPCS: 36415; 80053; 81001; 85025; 96361; 96374; 96375; 99285; J1885; J2405; J2765; J3010; J7030

== ENCOUNTER 2021-04-16 21:37 | Emergency (ER) | payer OTHER ==
[~2021-04-16 21:37] MED LIST changes: +OXYC1TAB15 PO
== END 2021-04-16 22:45 | disposition left against medical advice (07) ==
LOC: ER 21:37
DX: N39.8 Other specified disorders of urinary system (principal); Z53.21 Procedure and treatment not carried out due to patient leaving prior to being seen by health care provider